=== PATIENT | male | born 1980 | race Two or more races ===

== ENCOUNTER → 2020-02-23 | Outpatient (CLI) | payer MEDICAID | END | disposition home or self-care (01) | LOC: US 09:30 | PROVIDERS: ATTEND Family Medicine | PROC: BW40ZZZ Ultrasonography of Abdomen (ICD-10-PCS; principal; 2020-02-23) | DX: K74.60 Unspecified cirrhosis of liver (principal); K80.80 Other cholelithiasis without obstruction ==